=== PATIENT | female | born 1990 | race African-American/Black ===

== ENCOUNTER 2020-06-25 22:57 | Inpatient (IN) | payer MEDICARE ==
[~2020-06-25] VITALS: Ht 182.9 cm; Wt 100.2 kg
[2020-06-26] MEDS ORDERED: ONDANSETRON HCL 4MG/2ML INJ IV STA (00:17)
[2020-06-26] MEDS ORDERED: LORAZEPAM 2MG/ML CPJ IV ONE (00:30)
[2020-06-26 01:19] LABS: BASOPHILS % 0.3 % (0.0-2.0); EOSINOPHILS % 0.5 % (0.0-5.0); HEMATOCRIT. 28.4 % (36.0-48.0); HEMOGLOBIN. 9.3 g/dL (12.0-16.0); LYMPHOCYTES % 10.5 % (20.0-50.0); MEAN CORPUSCULAR HEMOGLOBIN 27.9 pg (28.0-32.0); MEAN CORPUSCULAR VOLUME 85.1 fL (81.0-99.0); MEAN PLATELET VOLUME 7.8 fl (7.4-10.4); NEUTROPHILS % 79.7 % (40.0-76.0); PLATELET 188 x1000/uL (130-400); RED BLOOD CELL COUNT 3.33 mill/uL (4.2-5.4); RED CELL DISTRIBUTION WIDTH 16.9 % (11.6-14.6)
[2020-06-26 01:27] LABS: CHLORIDE 99 mEq/L (98-107)
[2020-06-26 01:30] LABS: ETHANOL BLOOD < 10 mg/dL
[2020-06-26 01:42] LABS: HCG SCREEN NEGATIVE
[2020-06-26 08:30] VITALS: BP 165/105
[2020-06-26] MEDS ORDERED: SEVE800T8 PO (09:00)
[2020-06-26] MEDS ORDERED: HYDR100T26 MT (09:00)
[2020-06-26] MEDS ORDERED: CLONIDINE 0.1MG TABLET PO SCH (09:30)
[2020-06-26 10:00] VITALS: BP 148/87
[2020-06-26] MEDS ORDERED: ONDANSETRON HCL 4MG/2ML INJ IV PRN (10:00)
[2020-06-26] MEDS ORDERED: NIFEDIPINE XL 60MG TAB PO SCH (10:00)
[2020-06-26] MEDS ORDERED: ACETAMINOPHEN 325MG TABLET PO PRN (10:00)
[2020-06-26 12:00] VITALS: BP 156/88
[2020-06-26] MEDS ORDERED: LIDOCAINE HCL/PF 1% 2ML VIAL ONE (12:08)
[2020-06-26 12:56] VITALS: BP 156/88
== END 2020-06-26 14:30 | disposition home or self-care (01) | DRG 917 ==
LOC: ER 23:02 → EDBEDREQ 06-26 00:19 → 5WST 06-26 02:06 → EDBEDREQTM 06-26 02:09 → EDBEDREQ 06-26 02:11 → ENRESERV 06-26 07:41
PROVIDERS: ADMIT Internal Medicine; ATTEND Internal Medicine
DX: T40.7X1A Poisoning by cannabis (derivatives), accidental (unintentional), initial encounter (principal); N18.6 End stage renal disease; I12.0 Hypertensive chronic kidney disease with stage 5 chronic kidney disease or end stage renal disease; R11.2 Nausea with vomiting, unspecified; F12.90 Cannabis use, unspecified, uncomplicated; D63.8 Anemia in other chronic diseases classified elsewhere; Z99.2 Dependence on renal dialysis; Z82.49 Family history of ischemic heart disease and other diseases of the circulatory system
CPT/HCPCS: 36415; 71045; 80053; 80320; 83735; 84443; 84484; 84703; 85025; 93005; 99285; J2405; J3490; G0480

== ENCOUNTER 2021-01-10 14:00 | Emergency (ER) | payer BC, MEDICARE ==
[~2021-01-10] VITALS: Ht 182.9 cm; Wt 113.0 kg
[~2021-01-10 14:00] MED LIST: HYDR100T26 MT; SEVE800T8 PO
[2021-01-10] MEDS ORDERED: HYDRALAZINE HCL 50MG TABLET PO ONE ×2 (16:00→21:45)
[2021-01-10 16:19] LABS: BASOPHILS % 0.4 % (0.0-2.0); EOSINOPHILS % 6.9 % (0.0-5.0); HEMATOCRIT. 31.3 % (36.0-48.0); LYMPHOCYTES % 15.7 % (20.0-50.0); MEAN CORPUSCULAR HEMOGLOBIN 26.9 pg (28.0-32.0); MEAN CORPUSCULAR VOLUME 84.1 fL (81.0-99.0); MEAN PLATELET VOLUME 7.8 fl (7.4-10.4); PLATELET 198 x1000/uL (130-400); RED BLOOD CELL COUNT 3.72 mill/uL (4.2-5.4); RED CELL DISTRIBUTION WIDTH 17.7 % (11.6-14.6)
[2021-01-10 16:25] LABS: CHLORIDE 99 mEq/L (98-107)
[2021-01-10] MEDS ORDERED: AMLODIPINE 5MG TABLET PO ONE (18:30)
[2021-01-10] MEDS ORDERED: CLONIDINE 0.2MG TABLET PO ONE ×2 (18:30→21:45)
[2021-01-10 22:12] VITALS: BP 202/128
== END 2021-01-10 22:13 | disposition home or self-care (01) ==
LOC: ER 14:00 → SUPCPDRO 21:00 → ER 22:13
DX: I10 Essential (primary) hypertension (principal)
CPT/HCPCS: 36415; 71045; 80053; 83880; 84484; 85025; 93005; 99285